=== PATIENT | male | born 1995 | race Caucasian/White ===

== ENCOUNTER 2020-06-20 16:48 | Emergency (ER) | payer OTHER, SELFPAY ==
[2020-06-20 17:05] VITALS: BP 157/91; PULSE 87; RESP 16; TEMP 36.6; O2SAT 98; BMI 35.9
--- NOTE | 2020-06-20 17:11 | HMH.EDUTC ---
[facility] – [place] Disposition Clinical Impression: Throat irritation Disposition: Home, Self-Care Condition on Discharge: Good Instructions: Amoxicillin Additional Instructions: *Monitor Temp, Over the counter Motrin or Tylenol as directed/as needed Tylenol every 4 hours and Motrin every 6 hours (as long as your family doctor has told you that you can take it) for fever or pain. and straight to ER if unable to lower temp less than 101.0 after medication given *Warm salt water gargles may help to soothe the throat *Warm fluids like tea with honey may help to soothe the throat Take antibiotics as prescribed Appointment with Dr Layton as scheduled tomorrow 06/21/20at noon Follow up with Information Security Consultant for further evaluation of cyst like area on your left hip Follow up IMMEDIATELY for new or worsening symptoms or no Noticeable improvement over the next 48-72 hours. 911 for difficulty breathing or swallowing Prescriptions: Amoxicillin [Amoxicillin 500mg Cap] 500 mg PO BID 10 Days #20 cap Transmission Status: Pending to [facility] #[id number] Referrals: PCP,Tawanna [Primary Care Provider] - As needed Khang Layton MD [Staff Physician] - 06/21/20 12:00 pm Randal Kinsey MD [Referring] - As needed (Call for appointment) Time of Disposition: 17:15 Medical Decision Making - Kam Inquiry Pt receiving controlled substance: Tawanna Humphrey was queried for this patient: No Vital Signs: 06/20/20 17:05 06/20/20 17:14 Temperature 97.9 F 98 F Temperature Source Tympanic Pulse Rate 85 Pulse Rate [Right] 87 Respiratory Rate 16 16 Blood Pressure 144/87 H Blood Pressure [Right Arm] 157/91 H Blood Pressure Mean [Right Arm] 113 Blood Pressure Source [Right Arm] Manual Cuff/ Doppler Blood Pressure Position [Right Arm] Sitting 02 Sat by Pulse Oximetry 98 Oxygen Delivery Method Room Air - Physician Consults Physician Consulted: Calin Time: 17:19 Reason -: ENT Eval/Care Comment/Response: Spoke with Dr Layton and he advised have him gargle warm salt water every 6 hours start him on Amoxil 500mg BID x 10 days and see him tomorrow in [facility] office at 12noon [facility] [place] HPI - General Stated complaint: spot in throat Time Seen by Provider: 06/20/20 17:11 Mode of Arrival: Ambulatory Source of Information: Patient Limitations: No Limitations Description of Symptoms (Recalled from Triage Doc. by RN): pt has what appears to be a skin tag on his left tonsil. pt also complains of a under the skin cyst on his left upper outter thigh. HEENT Symptoms (Recalled from RN notes): Yes (skin tag in appearance on left tonsil) Resp Symptoms (Recalled from RN notes): No Skin Symptoms (Recalled from RN notes): Yes (cyst under the skin on left upper outer thigh) MS Symptoms (Recalled from RN notes): No Functional Status (Recalled from RN notes): na - History of Present Illness Provider Complaint: Patient states that he noticed he had something Sticking out of his left tonsil and was aggrivating him when he would swallow State that he noticed it earlier today State that also has a place on his left hip that is a small Knot he wants to have looked at - Related Data Previous Rx's Medication Instructions Recorded Amoxicillin [Amoxicillin 500mg 500 mg PO BID 10 Days #20 cap 06/20/20 Cap] Allergies Allergy/AdvReac Type Severity Reaction Status Date / Time No Known Allergies Allergy Verified 06/20/20 17:15 - Worker's Comp Is this a Worker's Comp case?: No [facility] History - Hepatitis A Screen Drug use history?: No High risk sexual behaviors?: No History of sexually transmitted infection?: No Currently employed?: No Childcare worker?: No Do you have indoor plumbing?: Yes Do you have electricity?: Yes Attestation statement:: This patient has been screened for Hepatitis A risk factors. I have reviewed the patient's past medical history: Yes ROS Obtained: Yes All systems reviewed & no additional complaints, Yes Systems reviewed as ap
[2020-06-20 17:14] VITALS: BP 144/87; PULSE 85; RESP 16; TEMP 36.6
== END 2020-06-20 17:37 | disposition home or self-care (01) ==
PROVIDERS: Emergency Provider Nurse Practitioner
DX: J35.8 Other chronic diseases of tonsils and adenoids (principal); L72.8 Other follicular cysts of the skin and subcutaneous tissue
CPT/HCPCS: 99202; G0463

== ENCOUNTER → 2020-07-17 12:46 | Outpatient (CLI) | payer OTHER, SELFPAY ==
[2020-07-17 13:22] LABS: Basophils # 0.1 K/mm3 (0-0.2); Basophils % 0.6 % (0.1-2.0); Eosinophils # 0.3 K/mm3 (0.0-0.4); Eosinophils % 3.7 % (0.1-12.0); Hematocrit 46.3 % (42.0-52.0); Hemoglobin 15.9 g/dL (14.1-18.0); Lymphocytes # 3.1 K/mm3 (0.7-4.5); Lymphocytes % 41.4 % (10-50); Mean Corpuscular HGB Conc 34.4 g/dL (31.8-35.4); Mean Corpuscular Hemoglobin 27.9 pg (27.0-31.2); Mean Corpuscular Volume 81.1 fl (80-94); Mean Platelet Volume 7.3 fl (7.4-10.4); Monocytes # 0.5 K/mm3 (0.1-1.0); Monocytes % 6.6 % (1.7-9.3); Neutrophils # 3.5 K/mm3 (1.8-7.8); Neutrophils % 47.7 % (37.0-80.0); Platelet Count 332 K/mm3 (142-424); Red Blood Count 5.71 M/mm3 (4.60-6.20); Red Cell Distribution Width 13.1 % (11.5-17.5); White Blood Count 7.4 K/mm3 (4.8-10.8)
[2020-07-17 14:15] LABS: Coronavirus 19 IgG Antibody Negative (Negative); Coronavirus 19 IgM Antibody Negative (Negative)
== END ==
PROVIDERS: Visit Provider Otolaryngology
DX: J35.01 Chronic tonsillitis (principal); J39.2 Other diseases of pharynx; D49.0 Neoplasm of unspecified behavior of digestive system
CPT/HCPCS: 36415; 85025; 86328

== ENCOUNTER 2020-07-19 06:55 | Day surgery (SDC) | payer OTHER, SELFPAY ==
[2020-07-17 12:07] VITALS: BMI 35.9
[2020-07-19] VITALS (12 sets, daily range): BP systolic 136–158; BP diastolic 69–108; PULSE 81–110; RESP 12–18; TEMP 36.1–36.6; O2SAT 92–100; BMI 38.3
--- NOTE | 2020-07-19 07:29 | HMH.ANESCL ---
[facility] [place] Anesthesia Checklist - Patient Identification Patient Identification: Arm Band - Structural Data Admitted From: Home Planned Operative Procedure/s: Tonsillectomy Consent for Planned Operative Procedure(s) Verified: Yes - NPO Status Verified Time NPO: 00:00 - Additional verifications Anesthesia Reactions: No Hx Blood Transfusions: No Blood Transfusion Reaction: No - Airway Assessment C-Spine Mobility Assessed: Yes TMJ Mobility Assessed: Yes Dentition: Good Dentition - Neurological Assessment Level of Consciousness: Awake, Alert, Appropriate Hx Seizures: No Numbness or tingling in extremities: No - Anesthesia Plan Anesthesia Risk discussed: Yes Anesthesia Plan: Verified ASA Class: II Anesthesia Type: General [facility] [place] History I have reviewed the patient's past medical history: Yes Medical History: Denies:: Cancer, Diabetes Mellitus Type 1, Diabetes Mellitus Type 2, MRSA, Seizures *Have you ever received a pneumonia vaccine?: No *Have you received a flu vaccine this season?: No Other Medical History: Denies: Blood Transfusion Reaction Anesthesia experience/problems:: None Laterality Cases: Bilateral: Myringotomy (Ear Tubes) Other Surgeries: Yes: Other Amputation: No Fractures: No - *Social History Smoking Status: Unknown if ever smoked Alcohol Intake: never Substance Use Type: denies use *Occupational Status:: employed Housing: house Household Members: none *Travel in the last 8 weeks: None Family Hx:: Hypertension
--- NOTE | 2020-07-19 09:28 | P.OP_ITS ---
Date of procedure: 07/19/20 Pre-op Diagnosis:: 1. Polyp left tonsil 2. Obstructive tonsillitis 3. Recurrent acute tonsillitis Post-op Diagnosis:: same Procedure performed:: Tonsillectomy Surgeon:: Khang Layton MD LIP READING TEACHER:: Other (Margaret) Anesthesia: GETA Estimated blood loss (mL): 15 Operative findings:: same Operative note:: This patient was initially intubated with a #7.5 tube and it was not possible to place the tonsillectomy gag because of the size of the tube accordingly the patient was reintubated and #6 tube was placed. It was then possible to place the tonsil gag. Both of the tonsils were significantly hypertrophied and diseased and there was a polyp, with possible ulcer on the left tonsil. Using the harmonic scalpel the right and left tonsils were both removed and submitted separately. Bleeding was stopped with cautery, Surgicel snow was placed in the right tonsil cavity. And the pillars were oversewn with 2-0 Vicryl. Similarly Surgicel snow was placed in the left tonsil cavity and the pillars were oversewn with 2-0 Vicryl. All of the throat was then thoroughly irrigated as was the nasopharynx and all of the blood was cleared. The patient tolerated the procedure well and was sent from to recovery in good general condition. All of the active bleeding was stopped. Condition: stable Disposition: PACU Complications:: none
--- NOTE | 2020-07-19 10:33 | P.PN_ITS ---
[facility] Anesthesia Record Part I Intake, IV Amount: 1,500 Estimated blood loss (mL): 200 Urine output (mL): 0 Blood Pressure: 158/108 SaO2: 95 Pulse Rate: 103 Respiratory Rate: 12 Temperature: 97.2 F Patient is:: Awake, Drowsy
--- NOTE | 2020-07-19 13:33 | P.PN_ITS ---
[facility] Anesthesia Record Part II Discharge Time: 10:22 Destination: Surgical Day Care (OP Surgery) PACU nurse assessment reviewed?: Yes Patient Condition:: Good Anesthesia Complications:: None Swallowing reflex intact?: Yes Cyanosis?: No Blood Pressure: 136/80 Pulse Rate: 98 Temperature: 97.6 F Mental Status: Alert & Oriented Pain level:: 3 Nausea and/or vomitting:: None Intake, IV Amount: 0
== END 2020-07-19 10:55 | disposition home or self-care (01) ==
PROVIDERS: Visit Provider Otolaryngology
PROC: (CPT 42826; principal; 2020-07-19 08:30)
DX: J35.8 Other chronic diseases of tonsils and adenoids (principal); J03.91 Acute recurrent tonsillitis, unspecified; J35.01 Chronic tonsillitis; Z82.49 Family history of ischemic heart disease and other diseases of the circulatory system
CPT/HCPCS: 42826; 96374; 96375

== ENCOUNTER 2020-07-25 20:16 | Emergency (ER) | payer OTHER, SELFPAY ==
[2020-07-25 20:19] VITALS: BP 148/78; PULSE 112; RESP 18; TEMP 37.1; O2SAT 95; BMI 38.0
--- NOTE | 2020-07-25 20:40 | HMH.EDRECH ---
ED Disposition Clinical Impression: Postoperative hemorrhage of tonsil Disposition: Home, Self-Care Condition on Discharge: Good Instructions: DI for Tonsillectomy-Adult Additional Instructions: see dr cobb as planned tomorrow - flo if needed Referrals: Provider,Referral, [Primary Care Provider] - - Critical Care Critical Care Time: No Attestation: On 07/25/20, the high probability of a clinically significant, sudden or life threatening deterioration of the following system(s) required my full and direct attention, intervention and personal management. The time I documented below is in addition to time spent performing reported procedures but includes the following listed in this critical care notation. Medical Decision Making - Medical Records Medical records reviewed: Yes: I reviewed the patient's medical records. - Kam Inquiry Pt receiving controlled substance: No Vital Signs: 07/25/20 20:19 Temperature 98.7 F Temperature Source Oral Pulse Rate [Right] 112 H Respiratory Rate 18 Blood Pressure [Right Arm] 148/78 H Blood Pressure Mean [Right Arm] 101 02 Sat by Pulse Oximetry 95 - Lab Data Lab results reviewed: Yes: I reviewed the patient's lab results. Lab Results 07/25/20 20:30: WBC 12.6 H, RBC 5.09, Hgb 14.1, Hct 42.1, MCV 82.6, MCH 27.8, MCHC 33.6, RDW 13.1, Plt Count 382, MPV 7.5, Neut % (Auto) 54.4, Lymph % (Auto) 36.4, Mcclain % (Auto) 6.5, Eos % (Auto) 2.2, Baso % (Auto) 0.6, Neut # (Auto) 6.8, Lymph # (Auto) 4.6 H, Mcclain # (Auto) 0.8, Eos # (Auto) 0.3, Baso # (Auto) 0.1 07/25/20 20:30: Sodium 138, Potassium 3.8, Chloride 103, Carbon Dioxide 24, Anion Gap 14.8, BUN 13, Creatinine 1.10, Estimated Creat Clear 188, Estimated GFR 83, Est GFR ( Amer) 100, Glucose 112 H, Calcium 9.3, Total Bilirubin 0.5, AST 28, ALT 35, Alkaline Phosphatase 81, Total Protein 7.5, Albumin 4.6, Globulin 2.9, Albumin/Globulin Ratio 1.6 Result diagrams: 07/25/20 20:30 07/25/20 20:30 - Physician Consults Physician Consulted: jordyn Reason -: Pt condition Medical Decision Narrative: doing better and has appt in am for follow up Recheck HPI - General Chief Complaint: Recheck/Abnormal Lab/Rx Stated Complaint: 07/18 removal tonsils bleeding Time Seen by Provider: 07/25/20 20:25 Mode of Arrival: Ambulatory Source of Information: Patient, Medical Record Limitations: No Limitations Description of Symptoms (Recalled from ER Triage Doc. by RN): pt states had tonsills removed a week ago. tami was eating a cheeseburger after eating the incision started to bleeding - History of Present Illness HPI narrative: recent tonsil surg and had episode of bleeding tonight - MD complaint: other Initial visit (ago): hour(s) Returns today for: other (bleeding after surg ) Symptoms since prior visit: improved Associated symptoms: none - Related Data Home Medications Medication Instructions Recorded Confirmed No Known Home Medications 07/12/20 07/19/20 Allergies Allergy/AdvReac Type Severity Reaction Status Date / Time No Known Allergies Allergy Verified 07/19/20 07:11 [facility] History - Hepatitis A Screen Drug use history?: No High risk sexual behaviors?: No History of sexually transmitted infection?: No Currently employed?: No Childcare worker?: No Do you have indoor plumbing?: Yes Do you have electricity?: Yes Attestation statement:: This patient has been screened for Hepatitis A risk factors. I have reviewed the patient's past medical history: Yes Medical History: Denies:: Cancer, Diabetes Mellitus Type 1, Diabetes Mellitus Type 2, MRSA, Seizures Other Medical History: Denies: Blood Transfusion Reaction Laterality Cases: Bilateral: Myringotomy (Ear Tubes) Other Surgeries: Yes: Other Amputation: No Fractures: No - Social History Smoking Status: Never smoker Alcohol Intake: never Substance Use Type: denies use Occupational Status: employed Housing: house Household Me
[2020-07-25 20:41] LABS: Basophils # 0.1 K/mm3 (0-0.2); Basophils % 0.6 % (0.1-2.0); Eosinophils # 0.3 K/mm3 (0.0-0.4); Eosinophils % 2.2 % (0.1-12.0); Hematocrit 42.1 % (42.0-52.0); Hemoglobin 14.1 g/dL (14.1-18.0); Lymphocytes # 4.6 K/mm3 (0.7-4.5); Lymphocytes % 36.4 % (10-50); Mean Corpuscular HGB Conc 33.6 g/dL (31.8-35.4); Mean Corpuscular Hemoglobin 27.8 pg (27.0-31.2); Mean Corpuscular Volume 82.6 fl (80-94); Mean Platelet Volume 7.5 fl (7.4-10.4); Monocytes # 0.8 K/mm3 (0.1-1.0); Monocytes % 6.5 % (1.7-9.3); Neutrophils # 6.8 K/mm3 (1.8-7.8); Neutrophils % 54.4 % (37.0-80.0); Platelet Count 382 K/mm3 (142-424); Red Blood Count 5.09 M/mm3 (4.60-6.20); Red Cell Distribution Width 13.1 % (11.5-17.5); White Blood Count 12.6 K/mm3 (4.8-10.8)
[2020-07-25 20:52] LABS: Chloride 103 mmol/L (98-107); Sodium 138 mmol/L (136-145)
[2020-07-25 20:53] LABS: Potassium 3.8 mmoL/L (3.5-5.1)
[2020-07-25 20:55] LABS: Alanine Aminotransferase 35 U/L (12-78); Albumin Level 4.6 g/dl (3.5-5.0); Albumin/Globulin Ratio 1.6 (1.1-1.8); Alkaline Phosphatase 81 U/L (38-126); Anion Gap 14.8 mEq/L (5-15); Aspartate Amino Transferase 28 U/L (17-59); Bilirubin,Total 0.5 mg/dl (0.2-1.3); Blood Urea Nitrogen 13 mg/dl (9-20); Carbon Dioxide 24 mmol/L (22.0-30.0); Creatinine Clearance Estimated 188 mL/min (50-200); Estimated Glomerular Filt Rate 83 ml/min (>60); GFR (African American) 100 ML/MIN (>60); Globulin 2.9 g/dL (1.3-3.2); Total Protein,Serum 7.5 g/dl (6.3-8.2)
[2020-07-25 20:56] LABS: Calcium 9.3 mg/dl (8.4-10.2); Glucose 112 mg/dl (74-100)
[2020-07-25 21:38] VITALS: BP 134/75; PULSE 78; RESP 18; TEMP 36.6; O2SAT 99
== END 2020-07-25 21:39 | disposition home or self-care (01) ==
PROVIDERS: Emergency Provider Emergency Medicine
DX: K91.840 Postprocedural hemorrhage of a digestive system organ or structure following a digestive system procedure (principal)
CPT/HCPCS: 80053; 85025; 99282

== ENCOUNTER → 2021-04-11 11:47 | Outpatient (CLI) | payer OTHER, SELFPAY | PROVIDERS: PCP Family Medicine; Visit Provider Nurse Practitioner | DX: U07.1 COVID-19 (principal) | CPT/HCPCS: C9803; U0003; U0005 ==

== ENCOUNTER 2022-02-15 13:43 | Emergency (ER) | payer BC, SELFPAY ==
--- NOTE | 2022-02-15 14:07 | EXP.UTC ---
Discharge Plan Disposition Patient Disposition: Home, Self-Care Condition: Good Prescriptions Prescriptions: New azithromycin [Zithromax] 250 mg tablet 250 mg PO UD DOSE PK Qty: 6 0RF Rx Instructions: Take two (2) tablets today, then one (1) tablet days #2 thru #5 methylprednisolone 4 mg Tablets,Dose Pack 4 mg PO DIRECTED Qty: 21 0RF [id number]-[id number] [Bromfed DM] 2-30-10 mg/5 mL Syrup 5 ml PO Q6H PRN (Reason: Cough) Qty: 240 0RF No Action amoxicillin 875 mg tablet 875 mg PO BID 10 Days Qty: 20 0RF Rx Instructions: Take one tablet twice a day for the next 10 days. Referrals Follow up/Referrals: Tammy Cano MD [Primary Care Provider] - See instructions Activity Restrictions/Add. Instructions Additional Instructions/Restrictions: Drink plenty of fluids. Take tylenol or ibuprofen for pain or fever. Take the medications as directed. Follow up with your regular doctor. GO TO THE ER FOR ANY WORSENING SYMPTOMS Clinical Impressions Clinical Impression: Pharyngitis, Viral syndrome Stand Alone Forms Stand Alone Forms: Work/School Release Instructions Patient Instructions: DI for Pharyngitis/Tonsillopharyngitis -- Adult, DI for Viral Syndrome Discharge ED Provider: Benji Moreno [facility] General Stated complaint: Cough,Sore throat,left earache Time Seen by Provider: 02/15/22 14:06 History of Present Illness Provider Complaint: He states that for the past 2 days he has had worsening sore throat, chills, body aches and he has felt bad. Related Data Previous Rx's Medication Instructions Recorded amoxicillin 875 mg tablet 875 mg PO BID 10 days #20 tabs 12/08/20 azithromycin 250 mg tablet 250 mg PO UD DOSE PK #6 tabs 02/15/22 (Zithromax) [id number]-wrlsfykdwymwoac-DE 5 ml PO Q6H PRN Cough #240 mL 02/15/22 2 mg-30 mg-10 mg/5 mL oral syrup (Bromfed DM) methylprednisolone 4 mg tablets in 4 mg PO DIRECTED #21 tabs 02/15/22 a dose pack Allergies Allergy/AdvReac Type Severity Reaction Status Date / Time No Known Allergies Allergy Verified 02/15/22 14:17 [facility] Social History Smoking Status: Never smoker alcohol intake: never substance use type: denies use current occupational status: employed Travel in the last 8 weeks: None household members: none housing: house current occupational exposures/hazards: Yes ROS Obtained: Yes All systems reviewed & no additional complaints except as documented Constitutional Constitutional: Reports chills and Reports fever(s) Eyes Eyes: Denies eye discharge ENT Ears, Nose, Mouth, and Throat: Reports as per HPI Cardiovascular Cardiovascular: Denies chest pain Respiratory Respiratory: Denies chest congestion and Reports cough Gastrointestinal Gastrointestingal: Reports nausea; Denies abdominal pain, constipation, cramping, diarrhea or vomiting Musculoskeletal Musculoskeletal: Denies arthralgias Integumentary/Breasts Skin/Breast: Denies rash Neurologic Neurologic: Denies paresthesias Physical Exam General General appearance: alert and in no apparent distress Head Head exam: atraumatic, normocephalic and normal inspection Eye Eye exam: Present normal appearance, PERRL and EOMI ENT ENT exam: Present mucous membranes moist and normal external ear exam Expanded ENT Exam TM/Canal exam: Bilateral TM: erythema and bulging Nose exam: Absent sinus tenderness Mouth exam: Present normal external inspection; Absent drooling Teeth exam: Present normal inspection Throat exam: Present tonsillar erythema, tonsillomegaly and tonsillar exudate Neck Neck exam: Present normal inspection, full ROM and trachea midline; Absent tenderness, meningismus or lymphadenopathy Chest Chest inspection: Present normal inspection and symmetric chest wall rise; Absent tenderness Respiratory Respiratory exam: Present normal lung sounds bilate
[2022-02-15 14:15] VITALS: BP 154/94; PULSE 95; RESP 18; TEMP 36.9; O2SAT 99; BMI 35.9
[2022-02-15 14:18] LABS: UTC Strep Screen (Rapid) Negative (Negative)
[2022-02-15 14:19] LABS: UTC Influenza A Antigen Negative (Negative); UTC Influenza B Antigen Negative (Negative)
[2022-02-15 14:53] VITALS: BP 154/94; PULSE 95; RESP 18; TEMP 36.9
[2022-02-15 14:53] LABS: Adenovirus,PCR Not Detected (NotDetected); Bordetella Pertussis Not Detected (NotDetected); Chlamydophila Pneumoniae, PCR Not Detected (NotDetected); Coronavirus 19, PCR Not Detected (NotDetected); Coronavirus 229E Not Detected (NotDetected); Coronavirus NL63 Not Detected (NotDetected); Coronavirus OC43 Not Detected (NotDetected); Coronovirus HKU1,PCR Not Detected (NotDetected); Human Metapneumovirus Not Detected (NotDetected); Influenza A, PCR Not Detected (NotDetected); Influenza AH1, 2009 Not Detected (NotDetected); Influenza AH1, PCR Not Detected (NotDetected); Influenza AH3,PCR Not Detected (NotDetected); Influenza B, PCR Not Detected (NotDetected); Mycoplasma Pneumoniae, PCR Not Detected (NotDetected); Parainfluenza 1, PCR Not Detected (NotDetected); Parainfluenza 2, PCR Not Detected (NotDetected); Parainfluenza 3, PCR Not Detected (NotDetected); Parainfluenza 4, PCR Not Detected (NotDetected); Respiratory Syncytial Virus Not Detected (NotDetected); Rhinovirus/Enterovirus Not Detected (NotDetected)
== END 2022-02-15 14:56 | disposition home or self-care (01) ==
PROVIDERS: Emergency Provider Nurse Practitioner Family; PCP Family Medicine
DX: J02.9 Acute pharyngitis, unspecified (principal); R05.9 Cough, unspecified; H92.02 Otalgia, left ear; B34.9 Viral infection, unspecified
CPT/HCPCS: 87581; 87632; 87798; 87804; 87880; 99212; C9803; G0463; U0003; U0005